=== PATIENT | male | born 1960 | race Caucasian/White ===

== ENCOUNTER 2018-12-30 12:22 | Emergency (ER) | payer BC ==
[2018-12-30 12:42] VITALS: PULSE 75
--- NOTE | 2018-12-30 13:52 | C.PDOC ---
History Of Present Illness 58 year old male presents to ED with complaint of intermittent headache over the past several days. Patient describes the headache as throbbing and dull. Patient has a PMHx of hypertension and anxiety. Patient states that he hasn't taken his blood pressure medication in 2-3 days and when he took his blood pressure at home he reports a 200/90. Patient states that he has anxiety secondary to his being sick. He currently reports that he has no symptoms. He denies chest pain, SOB, abdominal pain, diarrhea, and travel. Time Seen by Provider: 12/30/18 12:59 Chief Complaint (Nursing): Headache History Per: Patient History/Exam Limitations: no limitations Onset/Duration Of Symptoms: Days, Intermittent Episodes Current Symptoms Are (Timing): Gone Quality: Aching Past Medical History Reviewed: Historical Data, Nursing Documentation, Vital Signs Vital Signs: Last Vital Signs Temp 98.2 F 12/30/18 12:30 Pulse 75 12/30/18 12:30 Resp 20 12/30/18 12:30 BP 148/48 L 12/30/18 12:30 Pulse Ox 95 12/30/18 12:30 - Medical History PMH: Anxiety, HTN Surgical History: No Surg Hx Family History: States: Unknown Family Hx - Social History Hx Alcohol Use: No Hx Substance Use: No - Immunization History Hx Tetanus Toxoid Vaccination: No Hx Influenza Vaccination: Yes (2018) Hx Pneumococcal Vaccination: No Review Of Systems Eyes: Negative for: Vision Change Cardiovascular: Negative for: Chest Pain Respiratory: Negative for: Shortness of Breath Gastrointestinal: Negative for: Abdominal Pain, Diarrhea Neurological: Positive for: Headache. Negative for: Weakness, Numbness, Dizziness Physical Exam - Physical Exam Appears: Well, Non-toxic, No Acute Distress Skin: Normal Color, Warm, Dry, No Rash Head: Atraumatic, Normacephalic Eye(s): bilateral: Normal Inspection, PERRL, EOMI Oral Mucosa: Moist Throat: No Erythema, No Exudate Neck: Normal ROM, Supple Chest: Symmetrical, No Deformity Cardiovascular: Rhythm Regular, No Murmur Respiratory: No Accessory Muscle Use, No Rales, No Rhonchi, No Wheezing Gastrointestinal/Abdominal: Soft, No Tenderness Back: Normal Inspection, No CVA Tenderness Extremity: Normal ROM, No Tenderness, Capillary Refill (<2 seconds), No Swelling Pulses: Left Dorsalis Pedis: Normal, Right Dorsalis Pedis: Normal Neurological/Psych: Oriented x3, Normal Speech, Normal Cognition, Normal Motor, Normal Sensation Gait: Steady ED Course And Treatment - Laboratory Results Result Diagrams: 12/30/18 14:17 12/30/18 14:17 O2 Sat by Pulse Oximetry: 95 (in RA) Medical Decision Making Medical Decision Making: Impression: 58 year old male presents to ED with complaint of intermittent headache over the past several days Plan: EKG ordered for patient CMP and CBC ordered for patient On re-exam, the patient reports improvement of symptoms. Lungs are CTA, heart is RRR, abdomen is soft, non-tender and tolerating PO well. Pt is ambulatory in the Ed with steady gait. Follow up with the medical doctor within 1-2 days., Return if worsened/ Disposition - Disposition Referrals: [facility] [Outside] [facility] [Outside] Disposition: HOME/ ROUTINE Disposition Time: 15:25 Condition: GOOD Additional Instructions: Follow up with the medical doctor within 1-2 days., Return if worsened/ Prescriptions: Acetaminophen [Tylenol] 325 mg PO Q6 PRN #30 tab PRN Reason: Pain, Mild (1-3) Instructions: High Blood Pressure in Adults, Stress Forms: [employer] (Vietnamese) - Clinical Impression Clinical Impression: Hypertension, Stress at home - PA / [employer] / Resident Statement MD/DO has reviewed & agrees with the documentation as recorded. (Latanya Hoyt) - Scribe Statement The provider has reviewed the documentation as recorded by the Scribe (Latanya Hoyt) All medical record entries made by the Scribe were at my direction and personally dictated by me. I have reviewed the chart and agree that the record accurately reflects my personal performance of the history, physical exam, medical decision making, and the department course for this patient. I have also personally directed, reviewed, and agree with the discharge instructions and disposition.
[2018-12-30 14:22] LABS: BASO # 0.1 K/uL (0.0-0.2); BASO % 1.1 % (0.0-2.0); EOS # 0.2 K/uL (0.0-0.7); EOS % 2.1 % (0.0-4.0); HEMOGLOBIN 16.4 g/dL (12.0-18.0); LYMPH # 1.6 K/uL (1.0-4.3); LYMPH % 18.8 % (20.0-40.0); MEAN CELL VOLUME 93.9 fL (80.0-94.0); MEAN CORPUSCULAR HEMOGLOBIN 32.8 pg (27.0-31.0); MEAN CORPUSCULAR HGB CONC 34.9 g/dL (33.0-37.0); MEAN PLATELET VOLUME 8.6 fL (7.2-11.7); MONO # 0.7 K/uL (0.0-0.8); NEUT # 5.8 K/uL (1.8-7.0); RBC 5.01 Mil/uL (4.40-5.90); WHITE BLOOD COUNT 8.3 K/uL (4.8-10.8)
[2018-12-30 14:37] LABS: ALB/GLOB RATIO 1.5 (1.0-2.1); ALBUMIN 4.8 g/dL (3.5-5.0); ALT/SGPT 28 U/L (21-72); AST/SGOT 28 U/L (17-59); BLOOD UREA NITROGEN 11 mg/dL (9-20); CALCIUM 9.9 mg/dl (8.6-10.4); GFR NON-AFRICAN AMERICAN > 60
[2018-12-30 15:36] VITALS: BP 170/84; RESP 18; TEMP 98.6; O2SAT 99
--- NOTE | 2018-12-31 10:52 | CARD ---
APPROVED REPORT Date of service: 12/30/2018 EKG Measurement Heart [id number] <Conclusion> Normal sinus rhythm Normal ECG
== END 2018-12-30 15:39 | disposition home or self-care (01) ==
LOC: C.ER 12:22
DX: I10 Essential (primary) hypertension (principal); F43.9 Reaction to severe stress, unspecified